=== PATIENT | male | born 1995 | race Caucasian/White ===

== ENCOUNTER 2020-10-25 04:14 | Emergency (ER) | payer OTHER ==
[~2020-10-25] VITALS: Ht 170.2 cm; Wt 111.1 kg
[2020-10-25 04:40] VITALS: Ht 170.2 cm; Wt 111.1 kg
[2020-10-25 04:46] VITALS: BP 142/78
== END 2020-10-25 04:46 | disposition other institution (70) ==
LOC: ED 04:14
DX: Z02.89 Encounter for other administrative examinations (principal)